=== PATIENT | female | born 1995 | race Caucasian/White ===

== ENCOUNTER 2022-02-03 23:43 | Emergency (ER) | payer OTHER ==
[2022-02-04 01:57] LABS: HEMOGLOBIN 13.1 gm/dl (12.3-15.3); RED BLOOD COUNT 4.41 M/UL (4.00-5.10); WHITE BLOOD COUNT 9.1 K/UL (4.5-11.0)
[2022-02-04 02:06] LABS: BUN/CREATININE RATIO 20 (0-10)
== END 2022-02-04 02:33 | disposition home or self-care (01) ==
LOC: ER1 23:43
PROVIDERS: Emergency Medicine
DX: R07.89 Other chest pain (principal)
CPT/HCPCS: 71045; 80053; 82550; 82553; 84484; 85025; 93005; 99285